=== PATIENT | male | born 1965 | race Two or more races ===

== ENCOUNTER 2025-03-23 19:16 | Emergency (ER) | payer BC, SELFPAY ==
[2025-03-23 19:17] VITALS: BMI 34.5
[2025-03-23 20:01] VITALS: BP 167/91; PULSE 60; RESP 22; TEMP 36.8; O2SAT 99
--- NOTE | 2025-03-23 20:10 | XR_ITS ---
Examination: CT abdomen and pelvis without contrast. Coronal 3-D reconstructions. Sagittal 2-D reconstructions. Date and time of exam: March 23, 2025, 2222 hours INDICATIONS: Left-sided abdominal pain with nausea vomiting today CTDI: vol (mGy): 12.1 DLP: (mGycm): 804 Technique: Axial images of the abdomen have been obtained, 3 mm slice thickness Intravenous contrast material has not been administered. Low dose protocols were performed. One or more of the following dose reduction techniques were used; automated exposure control, adjustment of the mA and/or KV according to patient size, use of iterative reconstruction technique. Findings: Fatty infiltration throughout the liver No gallstones Spleen not enlarged No pancreatic or adrenal mass 1 to 2 mm multiple left renal calculi Mild left hydronephrosis 8 mm distal left ureterovesical junction calculus Normal appendix Colonic diverticulosis Mild prostatomegaly No bladder mass IMPRESSION: Mild left hydronephrosis, 8 mm distal left ureterovesical junction calculus
--- NOTE | 2025-03-23 20:11 | PD.EDRME ---
Rapid Medical Screening Exam E Arrival date/time: 03/23/25 19:16 59M with no significant PMH presents to ED with 1 day of L pelvic/flank pain and N/V. No dysuria/hematuria. Possible constipation. Patient does not there is some tingling in R toes while waiting in ED. Chief Complaint: Abdominal Pain Time Seen by Provider: 03/23/25 20:08 Vital signs: Vital Signs Temperature 98.2 F 03/23/25 20:01 Pulse Rate 60 03/23/25 20:01 Respiratory Rate 22 H 03/23/25 20:01 Blood Pressure 167/91 H 03/23/25 20:01 Pulse Oximetry (%) 99 03/23/25 20:01 Oxygen Delivery Method Room Air 03/23/25 20:01 Exam: No ab or CVA tenderness. Gait normal. Speech normal. Clinical Impression: Kidney stone vs torsion vs aortic dissection vs SBO vs diverticulitis
[2025-03-23 20:41] LABS: Basophils # (Auto) 0.1 Thou/mm3 (0.0-0.2); Basophils % (Auto) 1 % (0-2.5); Eosinophils # (Auto) 0.1 Thou/mm3 (0.0-0.5); Eosinophils % (Auto) 1 % (0-10); Hematocrit 41.8 % (41.0-53.0); Hemoglobin 13.8 g/dL (13.5-16.0); Immature Granulocytes Auto 0.07 Thou/mm3 (0.00-0.00); Lymphocytes # (Auto) 1.8 Thou/mm3 (1.0-4.8); Lymphocytes % (Auto) 16 % (10-50); Mean Corpuscular HGB Conc 33.0 g/dl (31.0-37.0); Mean Corpuscular Hemoglobin 27.4 pg (25.0-35.0); Mean Corpuscular Volume 83 fL (80-100); Monocytes # (Auto) 0.5 Thou/mm3 (0.0-0.8); Monocytes % (Auto) 5 % (0-12); Neutrophils # (Auto) 8.3 Thou/mm3 (1.8-7.7); Neutrophils % (Auto) 77 % (37-80); Nucleated Red Blood Cell # 0.00 Thou/mm3 (0.00-0.00); Nucleated Red Blood Cell % 0 /100 WBC (0); Platelet Count 248 Thou/mm3 (140-440); RDW Standard Deviation 40.8 fL (35.1-43.9); Red Blood Count 5.04 Miln/mm3 (4.50-5.90); White Blood Count 10.8 Thou/mm3 (3.8-10.6)
[2025-03-23 21:03] LABS: Alanine Aminotransferase 27 U/L (10-49); Albumin, Serum 5.1 gm/dL (3.5-5.0); Albumin/Globulin Ratio 2.3 (1.2-2.2); Alkaline Phosphatase 52 U/L (46-116); Anion Gap 13 (7-16); Aspartate Amino Transferase 29 U/L (0-34); BUN/Creatinine Ratio 7 Ratio (12-20); Bilirubin,Total 0.5 mg/dL (0.3-1.2); Blood Urea Nitrogen 11 mg/dL (9-23); Calcium 10.1 mg/dL (8.3-10.6); Calcium (Corrected) 10.1 mg/dL (8.5-10.1); Carbon Dioxide 23.6 mMol/L (20.0-31.0); Chloride 103 mMol/L (98-107); Creatinine (Component) 1.5 mg/dL (0.6-1.3); Estimated Creatinine Clearance 71.3 mL/min (>60); Globulin 2.2 gm/dL (2.3-3.5); Glucose 274 mg/dL (74-106); Lipase 41 U/L (12-53); Osmolality,Calculated 288 (275-295); Potassium 4.9 mMol/L (3.4-5.1); Sodium 140 mMol/L (136-145); Total Protein 7.3 gm/dL (5.7-8.2); eGFR 54 See Note
--- NOTE | 2025-03-23 21:03 | EDNOTE_ITS ---
ED Abdominal Pain RME/HPI General Chief Complaint: Abdominal Pain Stated complaint: LEFT LOWER ABD PAIN, VOMITING, LIGHTHEADED Time seen by provider: 03/23/25 20:08 Arrival date/time: 03/23/25 19:16 RME / HPI RME / HPI narrative: 03/23/25 19:16 59M with no significant PMH presents to ED with 1 day of L pelvic/flank pain and N/V. No dysuria/hematuria. Possible constipation. Patient does not there is some tingling in R toes while waiting in ED. Dr. Fisher?s Main ED Evaluation: 59yo male presenting with LLQ pain x 1530 that has persisted throughout the afternoon. Described as sharp and stabbing, is nonradiating. Reports associated several bouts of N/V, urinary frequency, and urgency. No dysuria or hematuria. No previous similar episodes. No modifying factors. PMH DM, HLD. PSH unremarkable. Occasional alcohol consumption, but denies tobacco or illicit drug use. Related Data Home Medications ?Medication ?Instructions ?Recorded ?Confirmed fenofibrate 54 mg tablet 105 mg PO QDAY 04/25/1804/12 metformin 500 mg tablet 500 mg PO QDAY 04/25/1804/12 Previous Rx's ?Medication ?Instructions ?Recorded oxycodone-acetaminophen 7.5 mg-325 1 tab PO TID PRN pa in #20 tabs 03/24/25 mg tablet (Percocet) promethazine 12.5 mg tablet 25 mg (2 x 12.5 mg) PO TID PRN 03/24/25 nausea and vomiting #14 tabs promethazine 25 mg rectal 25 mg SD Q6H PRN nausea and 03/24/25 suppository vomiting #12 ea tamsulosin 0.4 mg capsule (Flomax) 0.4 mg PO QDAY #7 c aps 03/24/25 Allergies Allergy/AdvReac Type Severity Reaction Status Date / Time No Known Allergies Allergy Verified 03/23/25 19:17 Review of Systems Review of Systems Systems Reviewed: All systems reviewed, normal except as documented Past Medical History Past Medical History NEUROLOGIC: Negative Seizures CARDIAC: Positive Hypercholesterolemia; Negative Congestive Heart Failure RESPIRATORY: Negative Chronic Obstructive Pulmonary Disease (COPD) GENITOURINARY: Negative Renal Disease MUSCULOSKELETAL: Positive Fractures (sacrum, compressed disks) ENDOCRINE: Positive Diabetes Mellitus Type 2; Negative Diabetes Mellitus Type 1 PSYCHO/SOCIAL: Positive Anxiety OTHER HISTORY: Negative Blood Transfusions Family History FAMILY HISTORY: Positive Family Cancer (mom, dad) Social History SMOKING STATUS: Never smoker ED Exam Narrative Physical exam: GENERAL APPEARANCE: alert and oriented x 4, complains of LLQ/groin pain, in moderate distress VITALS: All vitals were reviewed and the pulse ox is 99% on room air, which is normal according to my interpretation. HEENT: Normocephalic, atraumatic; pupils equal, round, reactive to light; EOMI; mucous membranes pink, moist; oropharynx clear NECK: Supple LUNGS: CTABL; no wheezes, no rales, no rhonchi HEART: Regular rate, regular rhythm; normal S1, S2; no murmurs ABDOMEN: non distended; soft, marked LLQ tenderness with slight guarding EXTREMITIES: atraumatic; no edema NEUROLOGIC: awake; alert and oriented x4; cranial nerves II-XII grossly intact; no focal sensory or motor deficits PSYCHIATRIC: appropriate mood and affect SKIN: warm, slightly diaphoretic, normal color; no rashes Course Quality Measures none Orders Category Date Time Status CT abdomen pelvis wo con Stat Exams 03/23/25 20:10 Completed CBC Stat Lab 03/23/25 20:26 Completed CMP [Comprehensive Metabolic Panel] Stat Lab 03/23/25 20:26 Completed Drug Screen,Urine Stat Lab 03/23/25 21:09 Completed Lipase Stat Lab 03/23/25 20:26 Completed Urinalysis, C/S if Indicated Stat Lab 03/23/25 21:09 Completed HYDROmorphone INJ [Dilaudid Inj] Med 03/23/25 23:39 Discontinued 1 mg IVP X1 ONE Ketorolac Inj [Toradol Inj] Med 03/23/25 21:11 Discontinued 15 mg IVP X1 ONE Ketorolac Inj [Toradol Inj] Med 03/23/25 20:10 Discontinued 60 mg IM X1 ONE Ketorolac Inj [Toradol Inj] Med 03/23/25 20:56 Discontinued 60 mg IM X1 ONE Morphine* Inj Med 03/23/25 21:11 Discontinued 4 mg IVP X1 ONE Ondansetron Inj [Zofran Inj] Med 03/23/25 20:10 Discontinued 4 mg IVP X1 ONE Ondansetron Odt [Zofran Odt] Med 03/23/25 20:56 Discontinued 4 mg PO X1 ONE Prochlorperazine Inj [Compazine Inj] Med 03/23/25 21:11 Discontinued 5 mg IV X1 ONE Sodium Chloride 0.9% 1000 ml [Ns] 1,000 ml Med 03/23/25 21:11 Discontinued IV 999 mls/hr Tamsulosin HCl [Flomax] Med 03/24/25 01:04 Discontinued 0.4 mg PO X1 ONE Vital Signs Vital signs: Vital Signs Temperature 98.2 F 03/23/25 20:01 Pulse Rate 60 03/23/25 20:01 Respiratory Rate 22 H 03/23/25 20:01 Blood Pressure 167/91 H 03/23/25 20:01 Pulse Oximetry (%) 99 03/23/25 20:01 Oxygen Delivery Method Room Air 03/23/25 20:01 Abdominal Pain MDM MDM Narrative MDM Narrative:: Scribe Attestation: 03/23/25 - Carolina Hastings am scribing for and in the presence of Dr. Fisher. 59yo male presenting with LLQ pain x 1530 that has persisted throughout the afternoon. Described as sharp and stabbing, is nonradiating. Reports associated several bouts of N/V, urinary frequency, and urgency. Please see PE findings. Lab markers including CBC and chemistries are unremarkable. UA with evidence of hematuria, but no signs of bacteriuria. Patient placed on case monitor and was treated with a combination of NSAIDs and required incremental doses of narcotic analgesics. Patient was referred for CT abdomen pelvis, which showed a distal left UVJ stone measuring 8mm with mild hydronephrosis. On serial evaluation, patient is resting comfortable and reports overall subjective improvement. Discussed case with urologist at [facility], [place], who suggests close follow-up in the absence of infection. Patient will be prescribed percocet, promethazine PO and rectal route, and flomax will be initiated. Close follow-up anticipated. Precaution instructions issued. Patient data External records reviewed:: [facility] previous records (Per chart review, patient was seen here on 04/07/23 for chest wall contusion.) Clinical information provided by:: patient Social determinants that could affect healthcare access:: none Patient has the following chronic illnesses:: DM, HLD How is presenting disease/condition affected by chronic disease/condition?: uneffected by Evaluation data The following diagnostics were reviewed and interpreted by me:: lab results and radiology exam(s) Lab and/or radiology exams considered but not ordered:: none Interpretation Summary: [place] [facility] Report Signed Patient: KARLEY CASTAÑEDA Record#: [id number] Birthdate: 1965 Age/Sex: 59 / M Location: [facility] Attending Dr: Ordering Physician: Yovany Wolff PA-C Date of Service: 03/23/25 Procedure(s): CT abdomen pelvis wo con Accession Number(s): [id number] cc: Fletcher Buchanan MD; Yovany Wolff PA-C~ Examination: CT abdomen and pelvis without contrast. Coronal 3-D reconstructions. Sagittal 2-D reconstructions. Date and time of exam: March 23, 2025, 2222 hours INDICATIONS: Left-sided abdominal pain with nausea vomiting today CTDI: vol (mGy): 12.1 DLP: (mGycm): 804 Technique: Axial images of the abdomen have been obtained, 3 mm slice thickness Intravenous contrast material has not been administered. Low dose protocols were performed. One or more of the following dose reduction techniques were used; automated exposure control, adjustment of the mA and/or KV according to patient size, use of iterative reconstruction technique. Findings: Fatty infiltration throughout the liver No gallstones Spleen not enlarged No pancreatic or adrenal mass 1 to 2 mm multiple left renal calculi Mild left hydronephrosis 8 mm distal left ureterovesical junction calculus Normal appendix Colonic diverticulosis Mild prostatomegaly No bladder mass IMPRESSION: Mild left hydronephrosis, 8 mm distal left ureterovesical junction calculus Dictated By: Fletcher Buchanan MD Signed By: <Electronically signed by Fletcher Buchanan MD in OV> 03/23/25 2100 Medications / Prescriptions Medications or Prescriptions considered but not ordered:: none Medication administrations:: Medication Administration History Discontinued Medications Hydromorphone HCl (Hydromorphone Inj 2 Mg/Ml Vial) 1 mg IVP X1 ONE Stop: 03/23/25 23:40 Last Admin: 03/23/25 23:50 Dose: 1 mg Documented By: DT Sodium Chloride (Ns) 1,000 mls @ 999 mls/hr IV .Q1H1M ONE Stop: 03/23/25 22:11 Last Infusion: 03/23/25 22:28 Dose: Infused Documented By: Admin: 03/23/25 21:27 Dose: 999 mls/hr Documented By: DT Ketorolac Tromethamine (Ketorolac Inj 60 Mg/2 Ml Vial) 60 mg IM X1 ONE Stop: 03/23/25 20:11 Last Admin: 03/23/25 20:58 Dose: Not Given Documented By: SM Non-Admin Reason: Duplicate Medication on eMAR Ketorolac Tromethamine (Ketorolac Inj 60 Mg/2 Ml Vial) 60 mg IM X1 ONE Stop: 03/23/25 20:57 Last Admin: 03/23/25 21:11 Dose: Not Given Documented By: DT Non-Admin Reason: Cancelled by Provider Ketorolac Tromethamine (Ketorolac Inj 30 Mg/Ml Vial) 15 mg IVP X1 ONE Stop: 03/23/25 21:12 Last Admin: 03/23/25 21:29 Dose: 15 mg Documented By: DT Morphine Sulfate (Morphine Sulf Inj 4 Mg/Ml Vial) 4 mg IVP X1 ONE Stop: 03/23/25 21:12 Last Admin: 03/23/25 21:30 Dose: 4 mg Documented By: DT Ondansetron HCl (Ondansetron Inj 2 Mg/Ml Inj 2 Ml) 4 mg IVP X1 ONE; Protocol Stop: 03/23/25 20:11 Last Admin: 03/23/25 20:57 Dose: Not Given Documented By: TAM Non-Admin Reason: Cancelled by Provider Ondansetron HCl (Ondansetron Odt 4 Mg Tabrap) 4 mg PO X1 ONE; Protocol Stop: 03/23/25 20:57 Last Admin: 03/23/25 21:11 Dose: Not Given Documented By: DT Non-Admin Reason: Cancelled by Provider Prochlorperazine Edisylate (Prochlorperazine Inj 5 Mg/Ml Vial 2 Ml) 5 mg IV X1 ONE; Protocol Stop: 03/23/25 21:12 Last Admin: 03/23/25 21:27 Dose: 5 mg Documented By: DT Tamsulosin HCl (Tamsulosin Hcl 0.4 Mg Capsule) 0.4 mg PO X1 ONE Stop: 03/24/25 01:05 Last Admin: 03/24/25 01:10 Dose: 0.4 mg Documented By: DT see above Consultations Consultation(s) initiated? (list below): Yes Consultation #1 (Physician, Specialty, Details): Discussed case with [facility] transfer center. Discussed patients ED course, exam findings, labs, and radiology results. Awaiting callback. Time: 23:28 Consultation #2 (Physician, Specialty, Details): Discussed case with Dr. Modi from urology regarding [facility] [place]. Discussed patients ED course, exam findings, labs, and radiology results. States he will see the patient as an outpatient. Time: 23:45 Diagnosis Differential diagnosis abdominal pain: calculus of kidney and other (UTI, cystitis, pyelonephritis) Most likely diagnosis given after review of the tests above:: see clinical impression below Admission Indicated Admission indicated?: not indicated Admission Request Was there a request for admission?: No Disposition Plan Disposition Plan: Discharge Discharge Attestation Discharge Attestation: The patient and all family members were given an opportunity to ask questions and understood the discharge instructions. Discharge instructions specifically effects, indications for sooner follow up or return to the emergency department, and the expected course of current diagnosis. Patient condition: Stable Discharge Plan Plan Patient Disposition: HOME (Self Care) Discharge Disposition comment: Stable Prescriptions/Referrals Prescriptions/Med Rec: New oxycodone-acetaminophen [Percocet] 7.5-325 mg tablet 1 tab PO TID MDD 3 tab PRN (Reason: pain) Qty: 20 0RF promethazine 25 mg suppository 25 mg SD Q6H PRN (Reason: nausea and vomiting) Qty: 12 0RF promethazine 12.5 mg tablet 25 mg PO TID PRN (Reason: nausea and vomiting) Qty: 14 0RF tamsulosin [Flomax] 0.4 mg capsule 0.4 mg PO QDAY Qty: 7 0RF No Action metformin 500 mg Tablet 500 mg PO QDAY fenofibrate 54 mg Tablet 105 mg PO QDAY Referrals: jamil [Other] - 03/29/25 9:00 am Joel Suresh MD [Primary Care Provider, Family Practice] - In 1 week Problem List Clinical Impression: Ureterolithiasis, Hydronephrosis Impression comment: Ureterolithiasis/hydronephrosis Patient/Caregiver Discharge Instructions Discharge Activity: activity as tolerated Diet Instructions: Force fluids. Education Materials: Kidney Stones Expectant Tx, Kidney Stones Surg, ED Kidney Stone w/ Colic Additional Instructions: Force fluids. Medication as directed. Contact urology for office follow-up within 3 to 5 days. Print Language: Portuguese Stand Alone Forms: Alina Award Info., Patient Portal Info Letter
[2025-03-23 21:19] VITALS: BP 161/87; PULSE 61; RESP 14; TEMP 37; O2SAT 99
[2025-03-23 21:22] LABS: Collection Type, Urine Clean Catch; Squamous Epithelial Cell,Urine 0 /hpf (0-5)
[2025-03-23] MEDS: SODIUM CHLORIDE 0.9% 1000 ML 1,000 ML 999 ML IV (21:27)
[2025-03-23] MEDS: PROCHLORPERAZINE INJ 5 MG/ML VIAL 2 ML IV (21:27)
[2025-03-23] MEDS: KETOROLAC INJ 30 MG/ML VIAL 15 MG IVP (21:29)
[2025-03-23] MEDS: MORPHINE SULF INJ 4 MG/ML VIAL IVP (21:30)
[2025-03-23 21:34] LABS: Bilirubin,Urine Negative (Negative); Blood,Urine 3+ (Negative); Clarity,Urine Clear (Clear/Hazy); Color,Urine Yellow (Lt Yel-Yel); Culture Indicated,Urine Not Indicated; Glucose, Urine 2+ (Negative); Ketones,Urine 1+ (Negative); Leukocyte Esterase,Urine Negative (Negative); Nitrite,Urine Negative (Negative); PH,Urine 7.0 (5.0-7.0); Protein,Urine 1+ (Neg - Trace); RBC,Urine 63 /hpf (0-3); Specific Gravity,Urine 1.026 (1.001-1.035); Urobilinogen,Urine 2.0 mg/dL (0.0-1.0); WBC,Urine 2 /hpf (0-5)
[2025-03-23 21:48] LABS: Amphetamine/Methamp Scrn,U Negative (Negative); Barbiturate Screen,Urine Negative (Negative); Benzodiazepines Screen,Urine Negative (Negative); Benzoylecgonine Screen, Ur Negative (Negative); Fentanyl Screen,Urine Negative (Negative); Opiate Screen,Urine Negative (Negative); THC Screen,Urine Negative (Negative)
[2025-03-23 22:01] VITALS: BP 143/79; PULSE 80; RESP 19; TEMP 37.1; O2SAT 96
--- NOTE | 2025-03-23 23:46 | PC.NURSE ---
[id number] [facility] CONTACTED PKT SENT, IMAGE SENT. [id number] [facility] RETURNED CALL DR Weller SPEAKING WITH UROLOGIST AT THIS TIME.
[2025-03-23] MEDS: HYDROmorphone INJ 2 MG/ML VIAL 1 MG IVP (23:50)
[2025-03-24 00:08] VITALS: BP 153/87; PULSE 86; RESP 18; TEMP 36.7; O2SAT 95
[2025-03-24] MEDS: TAMSULOSIN HCL 0.4 MG CAPSULE PO (01:10)
[2025-03-24 01:21] VITALS: BP 140/85; PULSE 85; RESP 14; TEMP 37; O2SAT 99
== END 2025-03-24 01:22 | disposition home or self-care (01) ==
PROVIDERS: Physician Assistant; Emergency Provider Emergency Medicine; PCP Family Medicine
DX: N13.2 Hydronephrosis with renal and ureteral calculous obstruction (principal)
CPT/HCPCS: 36415; 74176; 80053; 80307; 81001; 83690; 85025; 96361; 96374; 96375; 99284; J0780; J1171; J1885; J2270; J7030; A9270

== ENCOUNTER → 2025-04-12 | Outpatient (CLI) | payer BC, SELFPAY ==
[2025-04-12 12:31] LABS: Alanine Aminotransferase 19 U/L (10-49); Albumin, Serum 4.7 gm/dL (3.5-5.0); Albumin/Globulin Ratio 2.0 (1.2-2.2); Alkaline Phosphatase 51 U/L (46-116); Anion Gap 11 (7-16); Aspartate Amino Transferase 23 U/L (0-34); BUN/Creatinine Ratio 11 Ratio (12-20); Bilirubin,Total 0.3 mg/dL (0.3-1.2); Blood Urea Nitrogen 12 mg/dL (9-23); Calcium 9.4 mg/dL (8.3-10.6); Calcium (Corrected) 9.4 mg/dL (8.5-10.1); Carbon Dioxide 25.3 mMol/L (20.0-31.0); Cardiac Risk Estimate 5.9 RATIO (4.0-6.7); Chloride 107 mMol/L (98-107); Cholesterol 159 mg/dL (132-200); Creatinine (Component) 1.1 mg/dL (0.6-1.3); Globulin 2.4 gm/dL (2.3-3.5); Glucose 155 mg/dL (74-106); HDL Cholesterol 27 mg/dL (40-60); LDL Cholesterol,Calculated 89 mg/dL (0-130); Osmolality,Calculated 287 (275-295); Potassium 4.3 mMol/L (3.4-5.1); Sodium 143 mMol/L (136-145); Total Protein 7.1 gm/dL (5.7-8.2); Triglycerides 217 mg/dL (30-150); eGFR > 60 See Note
[2025-04-12 12:52] LABS: Creatinine MALB Rnd Ur 129 mg/dL (30-125); Microalbumin Creat Ratio 4 mg/gCrea (<30); Microalbumin, Random Urine 5 mg/L (0-300)
[2025-04-12 15:28] LABS: Glucose Estimated Average 200 mg/dL (80-131); Hemoglobin A1C 8.6 % Hgb (4.8-6.0)
== END | disposition home or self-care (01) ==
PROVIDERS: PCP Family Medicine; Referring Provider Family Medicine; Visit Provider Family Medicine
DX: E11.65 Type 2 diabetes mellitus with hyperglycemia (principal); E78.1 Pure hyperglyceridemia
CPT/HCPCS: 36415; 80053; 80061; 82043; 82570; 83036